=== PATIENT | male | born 1990 | race Caucasian/White ===

== ENCOUNTER 2017-03-20 06:10 | Emergency (ER) | payer OTHER ==
[~2017-03-20] VITALS: Ht 175.3 cm; Wt 83.9 kg
[2017-03-20] MEDS ORDERED: ZOFRAN ODT4 MG PO (06:25)
[2017-03-20] MEDS ORDERED: OMEPRAZOLE20 MG PO (06:26)
== END 2017-03-20 08:04 | disposition home or self-care (01) ==
LOC: ED 06:10
DX: K21.9 Gastro-esophageal reflux disease without esophagitis (principal); F17.200 Nicotine dependence, unspecified, uncomplicated; Z91.030 Bee allergy status; Z79.899 Other long term (current) drug therapy
CPT/HCPCS: 80053; 81001; 83690; 85025; 96361; 96374; 96375; 99283; J1200; J2405; J2765; J7030